=== PATIENT | female | born 1970 | race Caucasian/White ===

== ENCOUNTER 2020-12-08 12:25 | Emergency (ER) | payer BC ==
[~2020-12-08] VITALS: Ht 170 cm; Wt 104.0 kg
[~2020-12-08 12:25] MED LIST: CTLP20T PO; CYCL10TA9 PO; FLT05NA16 NSEACH; HYDR1TAB PO; LRT10T PO; METH4TAB PO; METO50TA7 PO; OXYC-309 PO; TRAZ150T42 PO
[2020-12-08] MEDS ORDERED: LACTATED RINGERS 1,000 ML IV ONE (12:42)
--- NOTE | 2020-12-08 12:44 | ED General ---
General Stated Complaint: COVID+;SOA Source of Information: Patient Exam Limitations: No Limitations (AMINAH ARAGON APRN) History of Present Illness Date Seen by Provider: Dec 08, 2020 Time Seen by Provider: 12:44 Initial Comments Tested positive for Covid on 11/28/2020. Supposed to be off of quarantine today but it was extended due to her ongoing symptoms. Fevers up to 103 at night, she is mostly bothered by a persistent cough. Unvaccinated. Did not receive Regeneron. She is currently on prednisone and amoxicillin. Primary care is out of [facility]. Timing/Duration: 1-2 Days Severity: Moderate Associated Systoms: Cough (AMINAH ARAGON APRN) Allergies and Home Medications Allergies Coded Allergies: latex (Verified Allergy, Unknown, 12/08/20) Home Medications Citalopram Hydrobromide 20 Mg Tablet, 1 EACH PO DAILY, (Reported) Cyclobenzaprine Hcl 10 Mg Tablet, 1 EACH PO Q8HR PRN, (Reported) Fluticasone Propionate 16 Gm [place], 2 SPRAYS NSEACH DAILY, (Reported) Hydrocodone Bit/Acetaminophen 1 Each Tablet, 1-2 EACH PO Q4HR PRN Prescribed by: ALMAZ SOSA on 09/24/11 1833 Hydrocodone/Acetaminophen 1 Each Tablet, 1-2 TAB PO Q4H PRN for COUGH Prescribed by: AMINAH ARAGON on 12/08/20 1516 Loratadine 10 Mg Tab, 10 MG PO DAILY, (Reported) Methylprednisolone 4 Mg/Dose-Pack Tab.ds.pk, 1 PACKET PO UD Prescribed by: ALMAZ SOSA on 09/24/11 1832 Metoprolol Succinate 50 Mg Tab.sr.24h, 1 EACH PO DAILY, (Reported) Trazodone Hcl 150 Mg Tablet, 150 MG PO HS PRN, (Reported) Patient Home Medication List Home Medication List Reviewed: Yes (AMINAH ARAGON APRN) Review of Systems Review of Systems Constitutional: see HPI EENTM: see HPI Respiratory: see HPI, cough, dyspnea on exertion Cardiovascular: no symptoms reported Genitourinary: no symptoms reported Musculoskeletal: no symptoms reported Skin: no symptoms reported Psychiatric/Neurological: No Symptoms Reported Hematologic/Lymphatic: No Symptoms Reported (AMINAH ARAGON APRN) Physical Exam Vital Signs Vital Signs - First Documented 12/08/20 12:25 Temp 36.6 Pulse 108 Resp 30 B/P (MAP) 142/91 (108) Pulse Ox 94 O2 Delivery Room Air (LOUANN SIGALA MD) Vital Signs Capillary Refill : (AMINAH ARAGON APRN) Height, Weight, BMI Height: '" Weight: lbs. oz. kg; BMI Method:Stated General Appearance: No Apparent Distress, WD/WN, Obese (Oxygen saturation is 93 to 97% on room air. Heart rate 105) Eyes: Bilateral Eye Normal Inspection, Bilateral Eye PERRL, Bilateral Eye EOMI Neck: Full Range of Motion, Normal Inspection Respiratory: Lungs Clear, Normal Breath Sounds, No Accessory Muscle Use, No Respiratory Distress Cardiovascular: Regular Rate, Rhythm, Normal Peripheral Pulses Gastrointestinal: Normal Bowel Sounds, Non Tender, Soft Extremity: Normal Capillary Refill, Normal Inspection Neurologic/Psychiatric: Alert, Oriented x3 Skin: Normal Color, Warm/Dry (AMINAH ARAGON APRN) Progress/Results/Core Measures Suspected Sepsis SIRS Temperature: Pulse: Respiratory Rate: Laboratory Tests 12/08/20 12:30: White Blood Count 8.3 Blood Pressure / Mean: Laboratory Tests 12/08/20 12:30: Creatinine 0.85, Platelet Count 276, Total Bilirubin 0.3 (AMINAH ARAGON APRN) Results/Orders Lab Results Laboratory Tests Test 12/08/20 12:30 Range/Units White Blood Count 8.3 4.3-11.0 10^3/uL Red Blood Count 5.10 3.80-5.11 10^6/uL Hemoglobin 15.1 11.5-16.0 g/dL Hematocrit 46 35-52 % Mean Corpuscular Volume 90 80-99 fL Mean Corpuscular Hemoglobin 30 25-34 pg Mean Corpuscular Hemoglobin Concent 33 32-36 g/dL Red Cell Distribution Width 13.9 10.0-14.5 % Platelet Count 276 130-400 10^3/uL Mean Platelet Volume 10.1 9.0-12.2 fL Immature Granulocyte % (Auto) 1 % Neutrophils (%) (Auto) 74 42-75 % Lymphocytes (%) (Auto) 20 12-44 % Monocytes (%) (Auto) 6 0-12 % Eosinophils (%) (Auto) 0 0-10 % Basophils (%) (Auto) 0 0-10 % Neutrophils # (Auto) 6.1 1.8-7.8 10^3/uL Lymphocytes # (Auto) 1.7 1.0-4.0 10^3/uL Monocytes # (Auto) 0.5 0.0-1.0 10^3/uL Eosinophils # (Auto) 0.0 0.0-0.3 10^3/uL Basophils # (Auto) 0.0 0.0-0.1 10^3/uL Immature Granulocyte # (Auto) 0.1 0.0-0.1 10^3/uL D-Dimer 0.51 H 0.00-0.49 UG/ML Sodium Level 139 135-145 MMOL/L Potassium Level 3.3 L 3.6-5.0 MMOL/L Chloride Level 102 98-107 MMOL/L Carbon Dioxide Level 24 21-32 MMOL/L Anion Gap 13 5-14 MMOL/L Blood Urea Nitrogen 14 7-18 MG/DL Creatinine 0.85 0.60-1.30 MG/DL Estimat Glomerular Filtration Rate 71 BUN/Creatinine Ratio 16 Glucose Level 158 H 70-105 MG/DL Calcium Level 8.6 8.5-10.1 MG/DL Corrected Calcium 9.2 8.5-10.1 MG/DL Total Bilirubin 0.3 0.1-1.0 MG/DL Aspartate Amino Transf (AST/SGOT) 23 5-34 U/L Alanine Aminotransferase (ALT/SGPT) 32 0-55 U/L Alkaline Phosphatase 56 40-136 U/L C-Reactive Protein High Sensitivity 4.01 H 0.00-0.50 MG/DL Total Protein 6.3 L 6.4-8.2 GM/DL Albumin 3.3 3.2-4.5 GM/DL Procalcitonin 0.06 <0.10 NG/ML (LOUANN SIGALA MD) Medications Given in ED Current Medications Medications Dose Ordered Sig/Margo Route Start Time Stop Time Status Last Admin Dose Admin Acetaminophen/ Hydrocodone Bitart 1 ea ONCE ONCE PO 12/08/20 12:45 12/08/20 12:46 DC 12/08/20 12:35 1 EA Lactated Ringer's 1,000 ml @ ud STK-MED ONCE IV 12/08/20 12:42 12/08/20 12:44 DC 12/08/20 12:35 10,000 MLS/HR (LOUANN SIGALA MD) Vital Signs/I&O 12/08/20 12/08/20 12/08/20 12:25 12:25 15:53 Temp 36.6 36.6 Pulse 108 88 Resp 30 16 B/P (MAP) 142/91 (108) 136/82 (108) Pulse Ox 94 95 O2 Delivery Room Air Room Air (LOUANN SIGALA MD) Vital Signs/I&O Capillary Refill : (AMINAH ARAGON APRN) Departure Communication (Admissions) NAME: KRYSTAL BERMEO [facility] REC#: [id number] PT STATUS: REG ER : 1970 PHYSICIAN: AMINAH ARAGON APRN ADMIT DATE: 12/08/20/ER Draft Date of Exam:12/08/20 CHEST 1 VIEW, AP/PA ONLY INDICATION: Covid-19 positive. TIME OF EXAM: 1:19 PM No prior studies are available for comparison. FINDINGS: Heart is enlarged. There are some peripheral based infiltrates in the mid and lower lung dobbs bilaterally suggestive of Covid-19 pneumonia. No effusion or pneumothorax is seen. IMPRESSION: Findings suggestive of bilateral pulmonary infiltrates consistent with pneumonia. Pattern would be suggestive of Covid-19 pneumonia. Dictated on workstation # [id number] Dict: 12/08/20 1321 Trans: 12/08/20 1327 [id number] Interpreted by: GAUDENCIO KRISHNAMURTHY MD Electronically signed by: (AMINAH ARAGON APRN) Impression Primary Impression: COVID-19 Disposition: 01 HOME, SELF-CARE Condition: Stable Departure-Patient Inst. Decision time for Depature: 13:35 (AMINAH ARAGON APRN) Referrals: NO,LOCAL PHYSICIAN (PCP/Family) Primary Care Physician Patient Instructions: Recovery After COVID-19 Add. Discharge Instructions: 1. Cough medication as directed 2. Return to ER for any concerns 3. Follow-up with your doctor. Scripts Hydrocodone/Acetaminophen (Hydrocodone-Acetamin 5-325 mg) 1 Each Tablet 1-2 TAB PO Q4H PRN for COUGH, #14 TAB Prov: AMINAH ARAGON APRN 12/08/20 ATTENDING PHYSICIAN NOTE: I was physically present as attending physician in the emergency department during the care of this patient, but I was not directly involved in the decision making or delivery of care for this patient. (LOUANN SIGALA MD) AMINAH ARAGON APRN Dec 08, 2020 12:44 LOUANN SIGALA MD Dec 08, 2020 20:30
[2020-12-08] MEDS ORDERED: HYDROcodone/APAP 5 MG/325 MG (LORTAB) TAB PO ONE (12:45)
[2020-12-08 12:58] LABS: BASOPHILS % (AUTO) 0 % (0-10); EOSINOPHILS % (AUTO) 0 % (0-10); HEMATOCRIT 46 % (35-52); HEMOGLOBIN 15.1 g/dL (11.5-16.0); LYMPHOCYTES # (AUTO) 1.7 10^3/uL (1.0-4.0); LYMPHOCYTES % (AUTO) 20 % (12-44); MEAN CORPUSCULAR HEMOGLOBIN 30 pg (25-34); MEAN CORPUSCULAR HGB CONC 33 g/dL (32-36); MEAN CORPUSCULAR VOLUME 90 fL (80-99); MEAN PLATELET VOLUME 10.1 fL (9.0-12.2); MONOCYTES # (AUTO) 0.5 10^3/uL (0.0-1.0); MONOCYTES % (AUTO) 6 % (0-12); NEUTROPHILS # (AUTO) 6.1 10^3/uL (1.8-7.8); NEUTROPHILS % (AUTO) 74 % (42-75); PLATELET COUNT 276 10^3/uL (130-400); WHITE BLOOD COUNT 8.3 10^3/uL (4.3-11.0)
--- NOTE | 2020-12-08 13:27 | Diagnostic Imaging Report ---
INDICATION: Covid-19 positive. TIME OF EXAM: 1:19 PM No prior studies are available for comparison. FINDINGS: Heart is enlarged. There are some peripheral based infiltrates in the mid and lower lung dobbs bilaterally suggestive of Covid-19 pneumonia. No effusion or pneumothorax is seen. IMPRESSION: Findings suggestive of bilateral pulmonary infiltrates consistent with pneumonia. Pattern would be suggestive of Covid-19 pneumonia. Dictated by: Dictated on workstation # [id number]
[2020-12-08 13:39] LABS: ALBUMIN 3.3 GM/DL (3.2-4.5); POTASSIUM 3.3 MMOL/L (3.6-5.0)
[2020-12-08 13:40] LABS: CALCIUM 8.6 MG/DL (8.5-10.1)
[2020-12-08 13:42] LABS: TOTAL PROTEIN 6.3 GM/DL (6.4-8.2)
[2020-12-08 13:43] LABS: BILIRUBIN,TOTAL 0.3 MG/DL (0.1-1.0)
[2020-12-08 13:45] LABS: CREATININE SERUM 0.85 MG/DL (0.60-1.30)
[2020-12-08] MEDS ORDERED: ACHD5005 PO (15:16)
[2020-12-08 15:53] VITALS: BP 136/82
--- OUTSIDE RECORDS SUMMARY | 2020-12-09 03:32 | XMS REPORT | Clinical Summary ---
Author Author Admin, Ara GREER Organization [facility] Address Unknown Phone Unavailable Allergies, Adverse Reactions, Alerts Allergy Name Reaction Description Start Date Severity Status Pr ovider Allergies Unknown Conditions or Problems Problem Name Problem Code Onset Date Status Entry Date Provider Comment Standard Description Annotate Sneezing 784.99 Active Aby Bose MA Ot her symptoms involving head and neck Headache, unspecified Active Patrizia Ashby A Fever 780.60 Active Aby Bose MA Fev er, unspecified Medication List Medication Instructions Start Date Stop Date Generic Name NDC Status Provider Patient Instruction Drug Treatment Unknown - unknown
--- OUTSIDE RECORDS SUMMARY | 2020-12-09 03:32 | XMS REPORT | Clinical Summary ---
Author Author Admin, Ara GREER Organization [facility] Address Unknown Phone Unavailable Allergies, [...]
--- OUTSIDE RECORDS SUMMARY | 2020-12-09 03:32 | XMS REPORT | Clinical Summary ---
Author Author Admin, Ara GREER Organization [facility] Address Unknown Phone Unavailable Allergies, [...]
--- OUTSIDE RECORDS SUMMARY | 2020-12-09 03:32 | XMS REPORT | Clinical Summary ---
Author Author Admin, Ara GREER Organization [facility] Address Unknown Phone Unavailable Allergies, Adverse Reactions, [...]
--- OUTSIDE RECORDS SUMMARY | 2020-12-09 03:32 | XMS REPORT | Clinical Summary ---
Author Author Admin, Ara GREER Organization [facility] Address Unknown Phone Unavailable Allergies, Adverse Reactions, [...]
--- OUTSIDE RECORDS SUMMARY | 2020-12-09 03:32 | XMS REPORT ---
Author Author Ara [facility] Address [address] [place], [place] [id number] Care Team Providers Care Agricultural Sales Representative Name Role Phone Alfonzo Blas PCP Allergies and Adverse Reactions Name Reaction Notes Latex Biaxin Plan of Treatment Planned Activity Comments Planned Date Planned Time Plan/Goal Magnetic resonance imaging of cervical spine without contrast 04/17/2019 12:00 AM Magnetic resonance imaging of lumbar spine without contrast 04/17/2019 12:00 AM THYROID PANEL. 08/09/2020 12:00 AM THYROID PANEL. 08/09/2020 12:00 AM THYROID PANEL. 08/09/2020 12:00 AM Mammogram, screening, digital with nohemi 08/09/2020 1 2:00 AM CBC for General Health Panel 10/07/2020 12:00 AM Medications Active Name Start Date Estimated Completion Date SIG Co mments Prilosec oral Aleve 220 mg oral tablet take 1 tablet (220 mg) by oral route every 12 hours as needed Advil oral cyclobenzaprine 10 mg oral tablet 04/16/2019 1/2 to 1 tab po q 12 hours prn ondansetron 4 mg oral tablet,disintegrating 09/10/2019 dissolve 1 tablet by oral route every 6 hours as needed Carafate 1 gram oral tablet 01/12/2020 take 1 tablet (1 gram) by oral route 4 times per day on an empty stomach 1 hour before meals and at bedtime Mucinex 600 mg oral tablet extended release 12hr 06/07/2020 take 1 tablet (600 mg) by oral route every 12 hours as needed Celexa 20 mg oral tablet 08/09/2020 take 1 tablet (20 mg) by oral route once daily in the morning clorazepate dipotassium 7.5 mg oral tablet 08/09/2020 1 tab po q 12 hours prn Tricor 145 mg oral tablet 08/09/2020 take 1 tablet (145 mg) by oral route once daily Alcohol Prep Pads topical pads, medicated 08/09/2020 apply to affected area by topical route 4 times a day losartan-hydrochlorothiazide 100-12.5 mg oral tablet 08/09/2020 take 1 tablet by oral route once daily pantoprazole 20 mg oral tablet,delayed release (DR/EC) 08/09/2020 1 tab po q 12 hours prn triamcinolone acetonide 0.5 % topical cream 09/30/2020 apply a thin layer to the affected area(s) by topical route 2 times per day metformin 500 mg tablet 11/20/2020 take 1 t ablet (500 mg) by oral route 2 times per day with morning and evening meals prednisone 20 mg oral tablet 12/02/2020 12/12/2020 silver e 2 tabs po qd x 3 days, then 1 tab po qd x 3 days, then 1/2 tab po qd x 4 days amoxicillin-pot clavulanate 875-125 mg oral tablet 12/02/2020 12/12/2020 take 1 tablet by oral route every 12 hours for 10 days Name Start Date Expiration Date SIG Comments Keflex 500 mg oral capsule 04/01/2019 04/08/2019 take 1 capsule (500 mg) by oral route every 6 hours for 7 days prednisone 20 mg oral tablet 04/01/2019 3 t abs po q am x 1 day, 2 tabs po q am x 3 days, 1 tab po q am x 2 days, 1/2 tab po q am x 2 days. take with food. hydrocodone-acetaminophen 5-325 mg oral tablet 04/16/2019 take 1 tablet by oral route every 6 hours as needed for pain prednisone 20 mg oral tablet 04/16/2019 sta rt on 04 17 19, 2 tabs po q am x 4 days, 1 tab po q am x 4 days, 1/2 tab po q am x 4 days. take with food. amoxicillin-pot clavulanate 875-125 mg oral tablet 07/30/2019 08/09/2019 take 1 tablet by oral route every 12 hours for 10 days prednisone 20 mg oral tablet 07/30/2019 08/06/2019 silver e 2 tabs po qd x 2 days, then 1 tab po qd x 5 days fluoxetine 20 mg oral capsule 12/24/2019 TA KE 1 CAPSULE BY MOUTH IN THE MORNING prednisone 20 mg oral tablet 06/07/2020 06/17/2020 silver e 2 tabs po qd x 3 days, then 1 tab po qd x 3 days, then 1/2 tab po qd x 4 days Discontinued Name Start Date Discontinued Date SIG Comments losartan oral 07/08/2019 take 1 by oral route once hydrochlorothiazide 12.5 mg oral tablet 0 take 1 tablet (12.5 mg) by oral route once daily biotin oral 07/08/2019 Prozac 20 mg oral capsule 12/24/2019 12/24/2019 1 capsule po q am hydrochlorothiazide 12.5 mg oral tablet 12/24/2019 0 TAKE 1 TABLET BY MOUTH ONCE DAILY WITH LOSARTAN losartan 100 mg oral tablet 12/24/2019 12/24/2019 TAKE 1 TABLET BY MOUTH ONCE DAILY WITH HCTZ atorvastatin 20 mg oral tablet 12/24/2019 08/09/2020 t olga 1 tablet (20 mg) by oral route once daily at bedtime Problem List Not available. Vital Signs Date Time BP-Sys(mm[Hg] BP-Emilee(mm[Hg]) HR(bpm) RR(rpm) Temp WT HT HC BMI BSA BMI Percentile O2 Sat(%) 09/30/2020 5:29:00 PM 81 {beats}/min 16 rpm 98.2 F 241 lbs 67 in 37.7455 kg/m2 2.2732 m2 96 % 08/09/2020 9:24:00 AM 138 mm[Hg] 80 mm[Hg] 84 {beats}/min 20 rpm 97.9 F 252.375 lbs 67 in 39.53 kg/m2 2.33 m2 97 % 12/24/2019 8:26:00 AM 126 mm[Hg] 74 mm[Hg] 92 {beats}/min 19 rpm 98.1 F 234 lbs 67 in 36.6492 kg/m2 2.24 m2 96 % 10/17/2019 4:32:00 PM 128 mm[Hg] 76 mm[Hg] 78 {beats}/min 21 rpm 98.6 F 96 % 09/10/2019 5:08:00 PM 128 mm[Hg] 78 mm[Hg] 93 {beats}/min 20 rpm 97.9 F 95 % 07/08/2019 4:37:00 PM 156 mm[Hg] 98 mm[Hg] 91 {beats}/min 16 rpm 98.6 F 253.5 lbs 67 in 39.7033 kg/m2 2.3314 m2 95 % 04/16/2019 4:28:00 PM 144 mm[Hg] 92 mm[Hg] 85 {beats}/min 16 rpm 97.9 F 249 lbs 67 in 39.00 kg/m2 2.31 m2 98 % 04/01/2019 8:28:00 AM 122 mm[Hg] 80 mm[Hg] 90 {beats}/min 98.2 F 24 9 lbs 67 in 38.9985 kg/m2 2.3107 m2 98 % Social History Name Description Comments Tobacco Never smoker History of Procedures Date Ordered Description Order Status 04/01/2019 8:41 AM FALL RISK ASSESSMENT DOCD Reviewed 04/01/2019 8:41 AM SCREEN DEPRESSION PERFORMED Reviewed 04/01/2019 12:00 AM THER/PROPH/DIAG INJ SC/IM Reviewed 04/01/2019 12:00 AM Benadryl 50mg Injection Reviewed 04/16/2019 12:00 AM RADEX SPINE CERVICAL 4 OR 5 VIEWS Return ed 04/16/2019 12:00 AM RADEX SPINE LUMBOSACRAL 2/3 VIEWS Return ed 09/10/2019 12:00 AM SARS-CoV-2 non-CDC lab test Reviewed 10/17/2019 12:00 AM Decadron 8mg Injection Reviewed 10/17/2019 12:00 AM Depo-Medrol 80mg Injection Reviewed 10/17/2019 12:00 AM THER/PROPH/DIAG INJ SC/IM Reviewed 11/25/2019 12:00 AM SARS-CoV-2 non-CDC lab test Returned 12/24/2019 12:00 AM ROUTINE VENIPUNCTURE Reviewed 12/24/2019 12:00 AM COMPLETE CBC W/AUTO DIFF WBC Returned 12/24/2019 12:00 AM COMPREHEN METABOLIC PANEL Returned 12/24/2019 12:00 AM ASSAY OF TOTAL THYROXINE Returned 12/24/2019 12:00 AM ASSAY THYROID STIM HORMONE Returned 12/24/2019 12:00 AM ASSAY OF THYROID (T3 OR T4) Returned 12/24/2019 12:00 AM LIPID PANEL Returned 12/24/2019 12:00 AM URNLS DIP STICK/TABLET RGNT AUTO W/O EDILIA ROSCOPY Returned 06/07/2020 1:11 PM INFLUENZA A/B AG EIA Reviewed 06/07/2020 12:00 AM COVID-19 Testing Reviewed 08/09/2020 12:00 AM ROUTINE VENIPUNCTURE Reviewed 08/09/2020 12:00 AM COMPLETE CBC W/AUTO DIFF WBC Returned 08/09/2020 12:00 AM COMPREHEN METABOLIC PANEL Returned 08/09/2020 12:00 AM LIPID PANEL Returned 08/09/2020 12:00 AM URNLS DIP STICK/TABLET RGNT AUTO W/O EDILIA ROSCOPY Returned 08/09/2020 12:00 AM GLYCOSYLATED HEMOGLOBIN TEST Returned 08/09/2020 12:00 AM VITAMIN B-12 Returned 08/09/2020 12:00 AM VITAMIN D 25 HYDROXY Returned 08/30/2020 12:00 AM Benadryl 25mg Injection Reviewed 08/30/2020 12:00 AM Toradol 60 Mg Injection Reviewed 08/30/2020 12:00 AM THER/PROPH/DIAG INJ SC/IM Reviewed 09/30/2020 12:00 AM THER/PROPH/DIAG INJ SC/IM Reviewed 09/30/2020 12:00 AM Depo-Medrol 80mg Injection Reviewed 09/30/2020 12:00 AM Decadron 8mg Injection Reviewed 10/07/2020 12:00 AM COMPREHEN METABOLIC PANEL Returned 10/07/2020 12:00 AM HETEROPHILE ANTIBODY SCREEN Returned 10/07/2020 12:00 AM COVID-19 Testing Returned 10/07/2020 12:00 AM Tick Panel Returned Results Summary Date and Description Results 04/01/2019 8:41 AM During the past month, have you been feeling depressed? Yes During the past month, have you lost interest in usual activity? No 09/10/2019 5:35 PM [id number] NOT DETECTED 06/07/2020 2:30 PM [id number] NOT DETECTED History Of Immunizations Not available. History of Past Illness Name Date of Onset Comments Hypertension Prediabetes Colitis ulcer Arm edema Apr 01 2019 8:41AM Right arm pain Apr 01 2019 8:41AM Cellulitis Apr 01 2019 8:41AM Toxic effect of venom of wasps, accidental (unintentio nal), initial encounter Apr 01 2019 8:41AM Back pain Apr 16 2019 4:41PM Radiculopathy Apr 16 2019 4:41PM Lower extremity weakness Apr 16 2019 4:41PM Upper extremity weakness Apr 16 2019 4:41PM Disc narrowing Apr 16 2019 4:41PM Anterolisthesis Apr 16 2019 4:41PM Dextroscoliosis Apr 16 2019 4:41PM Hypertension Jul 08 2019 4:43PM Hyperglycemia Jul 08 2019 4:43PM Depression Jul 08 2019 4:43PM Obesity Jul 08 2019 4:43PM BMI 39.0-39.9,adult Jul 08 2019 4:43PM Acute sinusitis Jul 30 2019 10:01AM Fever Jul 30 2019 10:01AM Headache Jul 30 2019 10:01AM Gastroenteritis Sep 10 2019 5:09PM Fever Sep 10 2019 5:09PM Poison mina dermatitis Oct 17 2019 4:34PM Fever Nov 25 2019 2:57PM Headache Nov 25 2019 2:57PM Fatigue Nov 25 2019 2:57PM Diarrhea Nov 25 2019 2:57PM BMI 36.0-36.9,adult Dec 24 2019 8:26AM Hypertension Dec 24 2019 8:26AM Depression Dec 24 2019 8:26AM GERD (gastroesophageal reflux disease) Dec 24 2019 8:26AM Encounter for screening mammogram for breast cancer Dec 23 8:26AM Varicose veins of right lower extremity Dec 24 2019 8:26AM Hyperlipidemia Dec 24 2019 8:26AM Abdominal pain Jan 12 2020 5:55PM Vomiting Jan 12 2020 5:55PM History of gastric ulcer Jan 12 2020 5:55PM Constipation Jan 12 2020 5:55PM Cough Jun 07 2020 1:09PM Fever Jun 07 2020 1:09PM Fatigue Jun 07 2020 1:09PM Pharyngitis Jun 07 2020 1:09PM Hypertension Aug 09 2020 9:26AM Hyperlipidemia Aug 09 2020 9:26AM GERD (gastroesophageal reflux disease) Aug 09 2020 9:26AM Routine adult health maintenance Aug 09 2020 9:26AM Encounter for mammogram to establish baseline mammogram Aug 09 2020 9:26AM BMI 39.0-39.9,adult Aug 09 2020 9:26AM Fatigue Aug 09 2020 9:26AM Depression Aug 09 2020 9:26AM Anxiety Aug 09 2020 9:26AM Diabetes mellitus type II, uncontrolled Aug 09 2020 9:26AM Migraine Aug 30 2020 5:17PM Nausea and vomiting Aug 30 2020 5:17PM Contact dermatitis Sep 30 2020 5:33PM Fever Oct 07 2020 11:54AM Headache Oct 07 2020 11:54AM Fatigue Oct 07 2020 11:54AM Diarrhea Oct 07 2020 11:54AM Body aches Oct 07 2020 11:54AM Cough Dec 02 2020 5:12PM Fever Dec 02 2020 5:12PM Headache Dec 02 2020 5:12PM COVID-19 Dec 02 2020 5:12PM Payers Insurance Name Company Name Plan Name Plan Number Policy Number [place] Group Number Start Date Pro[employer] Care Pro[employer] Care [id number] N/ A [employer] [id number] N/ A [place] [employer] ([facility] [place] Plan [id number] N/A History of Encounters Visit Date Visit Type Provider 12/02/2020 Office visit Alfonzo Blas WET INSPECTOR [employer] 10/07/2020 Office visit 10/07/2020 Office visit Emeli DARLING RN 09/30/2020 Office visit Woodrow Figueroa A PRN 08/30/2020 Office visit Alfonzo Blas WET INSPECTOR [employer] 08/09/2020 Office visit Woodrow Espinosal A PRN 06/07/2020 Office visit Alfonzo Blas WET INSPECTOR [employer] 01/12/2020 Office visit Woodrow Espinosal A PRN 12/24/2019 Office visit Woodrow Espinosal A PRN 11/25/2019 Office visit Woodrow Espinosal A PRN 10/17/2019 Office visit Alfonzo Blas WET INSPECTOR [employer] 09/10/2019 Office visit Alfonzo Blas WET INSPECTOR [employer] 07/30/2019 Office visit Alfonzo Blas WET INSPECTOR [employer] 07/08/2019 Office visit Woodrow Espinosal A PRN 04/16/2019 Office visit Woodrow Duvallzell A PRN 04/01/2019 Office visit Woodrow Duvallzell A PRN
== END 2020-12-08 15:53 | disposition home or self-care (01) ==
LOC: EDUNIT# 12:27 → ER 12:28
DX: U07.1 COVID-19 (principal); E66.9 Obesity, unspecified; Z73.0 Burn-out
CPT/HCPCS: 36415; 71045; 80053; 84145; 85025; 85379; 86141

== ENCOUNTER 2020-12-23 21:11 | Emergency (ER) | payer BC ==
[~2020-12-23] VITALS: Ht 170.2 cm; Wt 106.5 kg
[~2020-12-23 21:11] MED LIST changes: +ACHD5005 PO
--- OUTSIDE RECORDS SUMMARY | 2020-12-23 21:16 | XMS REPORT | Clinical Summary ---
Author Author Admin, Ara GREER Organization [facility] Address Unknown Phone Unavailable Allergies, Adverse [...]
--- OUTSIDE RECORDS SUMMARY | 2020-12-23 21:16 | XMS REPORT ---
Author Author Ara Figueroa [facility] Address [address] [place], [place] [address] Care Team Providers Care Shade Bander Name Role Phone Woodrow Figueroa PCP Unavailable Allergies and Adverse Reactions Name Reaction Notes [...] for General Health Panel 10/07/2020 12:00 AM ZC CHEST 2 VIEW 12/23/2020 12:00 AM Medications Active Name Start Date [...] per day with morning and evening meals Name Start Date Expiration Date SIG Comments [...] 1/2 tab po qd x 4 days prednisone 20 mg oral tablet 12/02/2020 12/12/2020 silver e 2 tabs po qd x 3 days, then 1 tab po qd x 3 days, then 1/2 tab po qd x 4 days amoxicillin-pot clavulanate 875-125 mg oral tablet 12/02/2020 12/12/2020 take 1 tablet by oral route every 12 hours for 10 days Discontinued Name Start Date Discontinued Date [...] HC BMI BSA BMI Percentile O2 Sat(%) 12/23/2020 7:20:00 PM 104 mm[Hg] 62 mm[Hg] 116 {beats}/min 22 rpm 97.9 F 235 lbs 68 in 35.7313 kg/m2 2.2615 m2 94 % 09/30/2020 5:29:00 PM 81 {beats}/min 16 rpm 98.2 F 241 lbs 67 in 37.75 kg/m2 2.27 m2 96 % 08/09/2020 9:24:00 AM 138 mm[Hg] 80 mm[Hg] 84 {beats}/min 20 rpm 97.9 F 252.375 lbs 67 in 39.5271 kg/m2 2.3263 m2 97 % 12/24/2019 8:26:00 AM 126 mm[Hg] 74 mm[Hg] 92 {beats}/min 19 rpm 98.1 F 234 lbs 67 in 36.65 kg/m2 2.24 m2 96 % 10/17/2019 4:32:00 [...] in usual activity? No 09/10/2019 5:35 PM [id number] NOT DETECTED 06/07/2020 2:30 PM [id number] NOT DETECTED History Of Immunizations Not available. [...] 2020 5:12PM COVID-19 Dec 02 2020 5:12PM Cough Dec 21 2020 6:02PM Headache Dec 21 2020 6:02PM COVID-19 Dec 21 2020 6:02PM Cough Dec 23 2020 6:59PM Fever Dec 23 2020 6:59PM COVID-19 Dec 23 2020 6:59PM Tachycardia Dec 23 2020 6:59PM Fatigue Dec 23 2020 6:59PM Dyspnea Dec 23 2020 6:59PM Tachypnea Dec 23 2020 6:59PM Payers Insurance Name Company Name Plan Name Plan Number Policy Number Saul [place] Group Number Start Date BCBS [facility] [id number] N/ A [employer] Care [employer] [id number] N/ A [place] [facility] [id number] N/A [employer] [id number] N/ A History of Encounters Visit Date Visit Type Provider 12/23/2020 Office visit Woodrow Deng PRN 12/21/2020 Office visit Woodrow Deng PRN 12/02/2020 Office visit Alfonzo Blas NP 10/07/2020 Office visit 10/07/2020 Office visit Emeli DARLING RN 09/30/2020 Office visit Woodrow Deng PRN 08/30/2020 Office visit Alfonzo Blas NP 08/09/2020 Office visit Woodrow Deng PRN 06/07/2020 Office visit Alfonzo Blas NP 01/12/2020 Office visit Woodrow Deng PRN 12/24/2019 Office visit Woodrow Deng PRN 11/25/2019 Office visit Woodrow Deng PRN 10/17/2019 Office visit Alfonzo Blas CORRECTIONAL SUPERVISING COOK 09/10/2019 Office visit Alfonzo Blas CORRECTIONAL SUPERVISING COOK 07/30/2019 Office visit Alfonzo Blas CORRECTIONAL SUPERVISING COOK 07/08/2019 Office visit Woodrow Deng PRN 04/16/2019 Office visit Woodrow Deng PRN 04/01/2019 Office visit Woodrow Deng PRN
--- NOTE | 2020-12-23 21:38 | ED General ---
General Stated Complaint: COUGH, SOB, SORE THROAT Source of Information: Patient Exam Limitations: No Limitations History of Present Illness Date Seen by Provider: Dec 23, 2020 Time Seen by Provider: 21:37 Initial Comments To ER with cough shortness of breath and sore throat as well as pressure in her ears. The symptoms recurred about 4 days ago. She was diagnosed positive with Covid on 11/28. Timing/Duration: 2-3 Days Severity: Moderate Associated Systoms: Headaches, Weakness Allergies and Home Medications Allergies Coded Allergies: latex (Verified Allergy, Unknown, 12/08/20) Home Medications Citalopram Hydrobromide 20 Mg Tablet, 1 EACH PO DAILY, (Reported) Cyclobenzaprine Hcl 10 Mg Tablet, 1 EACH PO Q8HR PRN, (Reported) Fluticasone Propionate 16 Gm [place], 2 SPRAYS NSEACH DAILY, (Reported) Hydrocodone Bit/Acetaminophen 1 Each Tablet, 1-2 EACH PO Q4HR PRN Prescribed by: ALMAZ SOSA on 09/24/111832 Hydrocodone/Acetaminophen 1 Each Tablet, 1-2 TAB PO Q4H PRN for COUGH Prescribed by: AMINAH ARAGON on 12/08/20 1516 Loratadine 10 Mg Tab, 10 MG PO DAILY, (Reported) Methylprednisolone 4 Mg/Dose-Pack Tab.ds.pk, 1 PACKET PO UD Prescribed by: ALMAZ SOSA on 09/24/11 183 Metoprolol Succinate 50 Mg Tab.sr.24h, 1 EACH PO DAILY, (Reported) Trazodone Hcl 150 Mg Tablet, 150 MG PO HS PRN, (Reported) Patient Home Medication List Home Medication List Reviewed: Yes Review of Systems Review of Systems Constitutional: see HPI EENTM: see HPI Respiratory: see HPI, cough Cardiovascular: no symptoms reported Genitourinary: no symptoms reported Musculoskeletal: no symptoms reported Skin: no symptoms reported Psychiatric/Neurological: No Symptoms Reported Hematologic/Lymphatic: No Symptoms Reported Physical Exam Vital Signs Vital Signs - First Documented Capillary Refill : Height, Weight, BMI Height: '" Weight: lbs. oz. kg; 35.00 BMI Method:Stated General Appearance: No Apparent Distress, WD/WN, Other (She is a little dyspneic, after ambulating to room nine she has an oxygen saturation of 97 to 98% on room air heart rate 105 blood pressure 150/100.) Eyes: Bilateral Eye Normal Inspection, Bilateral Eye PERRL, Bilateral Eye EOMI HEENT: PERRL/EOMI, TMs Normal Neck: Full Range of Motion, Normal Inspection Respiratory: No Accessory Muscle Use, No Respiratory Distress Cardiovascular: Normal Peripheral Pulses, Tachycardia Gastrointestinal: Normal Bowel Sounds, Non Tender, Soft Extremity: Normal Capillary Refill, Normal Inspection Neurologic/Psychiatric: Alert, Oriented x3 Progress/Results/Core Measures Suspected Sepsis SIRS Temperature: Pulse: Respiratory Rate: Laboratory Tests 12/23/20 21:30: White Blood Count 11.1H Blood Pressure / Mean: Laboratory Tests 12/23/20 21:30: Creatinine 0.88, Platelet Count 288, Total Bilirubin 0.6 Results/Orders Lab Results Laboratory Tests Test 12/23/20 21:30 Range/Units White Blood Count 11.1 H 4.3-11.0 10^3/uL Red Blood Count 4.73 3.80-5.11 10^6/uL Hemoglobin 14.1 11.5-16.0 g/dL Hematocrit 42 35-52 % Mean Corpuscular Volume 90 80-99 fL Mean Corpuscular Hemoglobin 30 25-34 pg Mean Corpuscular Hemoglobin Concent 33 32-36 g/dL Red Cell Distribution Width 13.9 10.0-14.5 % Platelet Count 288 130-400 10^3/uL Mean Platelet Volume 10.4 9.0-12.2 fL Immature Granulocyte % (Auto) 0 % Neutrophils (%) (Auto) 61 42-75 % Lymphocytes (%) (Auto) 31 12-44 % Monocytes (%) (Auto) 6 0-12 % Eosinophils (%) (Auto) 2 0-10 % Basophils (%) (Auto) 1 0-10 % Neutrophils # (Auto) 6.8 1.8-7.8 10^3/uL Lymphocytes # (Auto) 3.4 1.0-4.0 10^3/uL Monocytes # (Auto) 0.6 0.0-1.0 10^3/uL Eosinophils # (Auto) 0.3 0.0-0.3 10^3/uL Basophils # (Auto) 0.1 0.0-0.1 10^3/uL Immature Granulocyte # (Auto) 0.0 0.0-0.1 10^3/uL D-Dimer 0.49 0.00-0.49 UG/ML Sodium Level 139 135-145 MMOL/L Potassium Level 3.8 3.6-5.0 MMOL/L Chloride Level 103 98-107 MMOL/L Carbon Dioxide Level 24 21-32 MMOL/L Anion Gap 12 5-14 MMOL/L Blood Urea Nitrogen 8 7-18 MG/DL Creatinine 0.88 0.60-1.30 MG/DL Estimat Glomerular Filtration Rate 68 BUN/Creatinine Ratio 9 Glucose Level 173 H 70-105 MG/DL Calcium Level 9.5 8.5-10.1 MG/DL Corrected Calcium 9.6 8.5-10.1 MG/DL Total Bilirubin 0.6 0.1-1.0 MG/DL Aspartate Amino Transf (AST/SGOT) 34 5-34 U/L Alanine Aminotransferase (ALT/SGPT) 61 H 0-55 U/L Alkaline Phosphatase 75 40-136 U/L C-Reactive Protein High Sensitivity 1.62 H 0.00-0.50 MG/DL Total Protein 7.1 6.4-8.2 GM/DL Albumin 3.9 3.2-4.5 GM/DL Procalcitonin 0.07 <0.10 NG/ML Influenza Type A (RT-PCR) Not Detected Not Detecte Influenza Type B (RT-PCR) Not Detected Not Detecte SARS-CoV-2 RNA (RT-PCR) Not Detected Not Detecte My Orders Orders - AMINAH ARAGON APRN Chest 1 View, Ap/Pa Only (12/23/20 21:30) Cbc With Automated Diff (12/23/20 21:36) Hs C Reactive Protein (12/23/20 21:36) Procalcitonin (Pct) (12/23/20 21:36) Comprehensive Metabolic Panel (12/23/20 21:36) Fibrin Degradation Products (12/23/20 21:36) Ed Iv/Invasive Line Start (12/23/20 21:36) Ketorolac Injection (Toradol Injection) (12/23/20 21:45) Lactated Ringers (Lr 1000 Ml Iv Solution (12/23/20 21:45) Hydrocodone/Apap 5/325 Tablet (Lortab 5 (12/23/20 22:15) Medications Given in ED Current Medications Medications Dose Ordered Sig/Margo Route Start Time Stop Time Status Last Admin Dose Admin Ketorolac Tromethamine 30 mg ONCE ONCE IVP 12/23/20 21:45 12/23/20 21:46 DC 12/23/20 21:42 30 MG Vital Signs/I&O 12/23/20 12/23/20 21:26 21:26 Temp 37.2 Pulse 105 Resp 20 B/P (MAP) 149/100 (116) Pulse Ox 97 O2 Delivery Room Air Room Air Capillary Refill : Departure Impression Primary Impression: Post-COVID syndrome Disposition: HOME, SELF-CARE Condition: Stable Departure-Patient Inst. Decision time for Depature: 22:12 Referrals: NO,LOCAL PHYSICIAN (PCP/Family) Primary Care Physician Patient Instructions: COVID-19 ED AMINAH ARAGON APRN Dec 23, 2020 21:38
[2020-12-23] MEDS: LACTATED RINGERS 1,000 ML IV SCH ×2 (21:42→21:43)
[2020-12-23 21:43] LABS: BASOPHILS # (AUTO) 0.1 10^3/uL (0.0-0.1); BASOPHILS % (AUTO) 1 % (0-10); EOSINOPHILS # (AUTO) 0.3 10^3/uL (0.0-0.3); EOSINOPHILS % (AUTO) 2 % (0-10); HEMATOCRIT 42 % (35-52); HEMOGLOBIN 14.1 g/dL (11.5-16.0); LYMPHOCYTES # (AUTO) 3.4 10^3/uL (1.0-4.0); LYMPHOCYTES % (AUTO) 31 % (12-44); MEAN CORPUSCULAR HEMOGLOBIN 30 pg (25-34); MEAN CORPUSCULAR HGB CONC 33 g/dL (32-36); MEAN CORPUSCULAR VOLUME 90 fL (80-99); MEAN PLATELET VOLUME 10.4 fL (9.0-12.2); MONOCYTES # (AUTO) 0.6 10^3/uL (0.0-1.0); MONOCYTES % (AUTO) 6 % (0-12); NEUTROPHILS # (AUTO) 6.8 10^3/uL (1.8-7.8); NEUTROPHILS % (AUTO) 61 % (42-75); PLATELET COUNT 288 10^3/uL (130-400); WHITE BLOOD COUNT 11.1 10^3/uL (4.3-11.0)
[2020-12-23] MEDS ORDERED: KETOROLAC 30 MG/ML VIAL IVP ONE (21:45)
--- NOTE | 2020-12-23 22:00 | Diagnostic Imaging Report ---
HISTORY: Chest pain, Covid three weeks ago. COMPARISON: 12/08/2020. TECHNIQUE: Frontal view of the chest. FINDINGS: Lung volumes are mildly large. The cardiac silhouette is mildly prominent but appears stable since the prior study. There are minimal basilar airspace opacities, significantly improved since the prior exam. There is no pleural effusion or pneumothorax. IMPRESSION: Minimal bilateral airspace opacities, significantly improved since the prior exam. This may represent atelectasis or continued resolution of infection. Dictated by: Dictated on workstation # [id number]
[2020-12-23 22:05] LABS: ALBUMIN 3.9 GM/DL (3.2-4.5); BILIRUBIN,TOTAL 0.6 MG/DL (0.1-1.0); CALCIUM 9.5 MG/DL (8.5-10.1); CREATININE SERUM 0.88 MG/DL (0.60-1.30); POTASSIUM 3.8 MMOL/L (3.6-5.0); TOTAL PROTEIN 7.1 GM/DL (6.4-8.2)
[2020-12-23] MEDS ORDERED: HYDROcodone/APAP 5 MG/325 MG (LORTAB) TAB PO ONE (22:15)
[2020-12-23 22:52] VITALS: BP 125/81
== END 2020-12-23 22:55 | disposition home or self-care (01) ==
LOC: EDUNIT# 21:11 → ER 21:13
DX: Z20.822 Contact with and (suspected) exposure to COVID-19 (principal)
CPT/HCPCS: 36415; 71045; 80053; 84145; 85025; 85379; 86141; 87636

== ENCOUNTER → 2021-10-25 | Outpatient (CLI) | payer BC ==
--- NOTE | 2021-10-26 11:15 | Diagnostic Imaging Report ---
INDICATION: Routine screening. COMPARISON: 01/01/2018 and 02/04/2016. TECHNIQUE: 2D and 3D bilateral screening mammography was performed with CAD. FINDINGS: Both breasts are heterogeneously dense, limiting the sensitivity of mammography. There is a small circumscribed nodule in the lower outer aspect of the right breast approximately 6 to 7 cm from the nipple. This was not present on the prior exam. No spiculated masses or malignant-appearing microcalcifications are seen. The axillae are unremarkable. IMPRESSION: There is a tiny circumscribed nodule in the lower outer right breast 6-7 cm from the nipple. Further evaluation with ultrasound is recommended. ACR BI-RADS Category 0: Incomplete. (Needs additional imaging evaluation). Result letter will be mailed to the patient. Note: At least 10% of breast cancer is not imaged by mammography. Dictated by: Dictated on workstation # [id number]
== END ==
LOC: RAD 15:45
PROVIDERS: ATTEND Registered Nurse
DX: Z12.31 Encounter for screening mammogram for malignant neoplasm of breast (principal); Z12.11 Encounter for screening for malignant neoplasm of colon; N63.11 Unspecified lump in the right breast, upper outer quadrant
CPT/HCPCS: 77063; 77067

== ENCOUNTER → 2022-01-06 | Outpatient (CLI) | payer BC ==
--- NOTE | 2022-01-06 11:40 | Diagnostic Imaging Report ---
Limited right breast ultrasound INDICATION: Abnormal mammogram The screening mammogram performed on 10/25/2021 noted a well-circumscribed nodule in the lower outer aspect of the right breast. This finding had developed since the prior exam of 01/01/2018. On this study, there is a lobulated avascular predominantly hypoechoic lesion in the 8 o'clock position approximately 7 cm from the nipple. This would correspond to the finding of the mammogram. I suspect that this is a cyst although it has somewhat of an unusual configuration. There is no solid mass to suggest malignancy. IMPRESSION: The density seen on the mammogram is felt to represent a benign-appearing cyst. It may prove worthwhile to have a short-term (3-month) follow-up mammogram and ultrasound for further study. ACR BI-RADS Category 3: Probably benign findings. Result letter will be mailed to the patient. Note: At least 10% of breast cancer is not imaged by mammography. Dictated by: Dictated on workstation # [id number]
== END ==
LOC: RAD 10:06
PROVIDERS: ATTEND Registered Nurse
DX: R92.8 Other abnormal and inconclusive findings on diagnostic imaging of breast (principal)

== ENCOUNTER 2022-07-03 16:09 | Emergency (ER) | payer BC ==
[~2022-07-03] VITALS: Ht 170.2 cm; Wt 107.0 kg
[2022-07-03 16:46] LABS: BILIRUBIN,URINE NEGATIVE (NEGATIVE); CLARITY,URINE CLEAR; COLOR,URINE YELLOW; GLUCOSE, URINE (UA) TRACE (NEGATIVE); KETONES,URINE NEGATIVE (NEGATIVE); LEUKOCYTE ESTERASE ,URINE 3+ (NEGATIVE); NITRITE,URINE POSITIVE (NEGATIVE); PROTEIN,URINE 2+ (NEGATIVE)
[2022-07-03] MEDS ORDERED: NS IV 1000 ML 1,000 ML IV STA (17:02)
[2022-07-03] MEDS ORDERED: KETOROLAC 30 MG/ML VIAL IVP STA (17:02)
--- NOTE | 2022-07-03 17:07 | ED GU-Female ---
General Chief Complaint: - Reproductive Stated Complaint: BACK PAIN Nursing Triage Note: PT AMB TO TRIAGE WITH COMPLAINT OF LEFT FLANK PAIN AND PAIN ON URINATION. STATES HAS BEEN RUNNING A FEVER AT HOME. Source: patient Exam Limitations: no limitations History of Present Illness Date Seen by Provider: Jul 03, 2022 Time Seen by Provider: 16:51 Initial Comments 51-year-old female presents with complaints of left lower back pain starting Sunday evening. She states this pain is constant, but reduces in intensity at times. She is also complaining of dysuria, urgency, frequency, abnormal looking urine with "things floating in it." She reports she has had fevers at home, temperature was 101 today. She did not take any fever reducing medication. She is also complaining of nausea. She reports that she was having right lower quadrant abdominal pain, states this pain is gone now. Reports history of kidney stones. Other past medical history includes type 2 diabetes, hypertension and high cholesterol. Allergies and Home Medications Allergies Coded Allergies: clarithromycin (Verified Allergy, Unknown, 07/03/22) latex (Verified Allergy, Unknown, 12/08/20) Patient Home Medication List Home Medication List Reviewed: Yes Cefpodoxime Proxetil (Cefpodoxime Proxetil) 200 Mg Tablet, 200 MG PO BID Prescribed by: Sia Drake on 07/03/22 185 Citalopram Hydrobromide (Celexa) 20 Mg Tablet, 1 EACH PO DAILY, (Reported) Entered as Reported by: FLORENCE BOLAND on 09/24/11 1601 Cyclobenzaprine Hcl (Cyclobenzaprine Hcl) 10 Mg Tablet, 1 EACH PO Q8HR PRN, (Reported) Entered as Reported by: FLORENCE BOLAND on 09/24/11 1601 Fluticasone Propionate (Flonase 0.05% Nasal [place]) 16 Gm [place], 2 SPRAYS NSEACH DAILY, (Reported) Entered as Reported by: FLORENCE BOLAND on 09/24/11 1601 Hydrocodone Bit/Acetaminophen (Vicodin 5-500 Tablet) 1 Each Tablet, 1-2 EACH PO Q4HR PRN Prescribed by: ALMAZ SOSA on 09/24/11 1833 Hydrocodone/Acetaminophen (Hydrocodone-Acetamin 5-325 mg) 1 Each Tablet, 1-2 TAB PO Q4H PRN for COUGH Prescribed by: AMINAH ARAGON on 12/08/20 1516 Hydrocodone/Acetaminophen (Hydrocodone-Acetamin 5-325 mg) 5 Mg-325 Mg Tablet, 1 TAB PO Q6H PRN for PAIN-MODERATE (5-7) Prescribed by: Sia Drake on 07/03/22 1859 Loratadine (Claritin) 10 Mg Tab, 10 MG PO DAILY, (Reported) Entered as Reported by: FLORENCE BOLAND on 09/24/11 1601 Methylprednisolone (Medrol Dose Pack) 4 Mg/Dose-Pack Tab.ds.pk, 1 PACKET PO UD Prescribed by: AMLAZ SOSA on 09/24/11 1832 Metoprolol Succinate (Toprol Xl 50 Mg) 50 Mg Tab.sr.24h, 1 EACH PO DAILY, (R eported) Entered as Reported by: FLORENCE BOLAND on 09/24/11 1601 Oxycodone Hcl/Acetaminophen (Oxycodone-Acetaminophen 5-325) 1 Each Tablet, 1 EACH PO, (Reported) Entered as Reported by: FLORENCE BOLAND on 09/24/11 1601 Trazodone Hcl (Trazodone Hcl) 150 Mg Tablet, 150 MG PO HS PRN, (Reported) Entered as Reported by: FLORENCE BOLAND on 09/24/11 1601 Review of Systems Review of Systems Constitutional: see HPI Past Gbnigao-Xgbtml-Zymzvk Hx Patient Social History Tobacco Use?: No Use of E-Cig and/or Vaping dev: No Substance use?: No Alcohol Use?: Yes Alcohol Frequency: Once in a while Pt feels they are or have been: No Physical Exam Vital Signs Vital Signs - First Documented 07/03/22 16:21 Temp 37.0 Pulse 102 Resp 20 B/P (MAP) 132/85 (101) Pulse Ox 97 O2 Delivery Room Air Capillary Refill : Less Than 3 Seconds Height, Weight, BMI Height: '" Weight: lbs. oz. kg; 36.00 BMI Method:Stated General Appearance: WD/WN, mild distress Neck: supple, normal inspection Cardiovascular: regular rate, rhythm, no edema, no gallop, no JVD, no murmur Respiratory: lungs clear, normal breath sounds, no respiratory distress, no accessory muscle use Gastrointestinal: normal bowel sounds, non tender, soft, no organomegaly, no pulsatile mass Back: normal inspection, no CVA tenderness Extremities: normal range of motion, normal inspection, no pedal edema Neurologic/Psychiatric: alert, normal mood/affect Skin: normal color, warm/dry Progress/Results/Core Measures Suspected Sepsis SIRS Temperature: Pulse: 102 Respiratory Rate: 20 Laboratory Tests 07/03/22 16:45: White Blood Count 13.4H Blood Pressure 132 /85 Mean: 101 Laboratory Tests 07/03/22 16:45: Creatinine 0.87, Platelet Count 259, Total Bilirubin 0.6 Results/Orders Lab Results Laboratory Tests Test 07/03/22 16:33 07/03/22 16:45 Range/Units Urine Color YELLOW Urine Clarity CLEAR Urine pH 6.0 5-9 Urine Specific [place] 1.010 L 1.016-1.022 Urine Protein 2+ H NEGATIVE Urine Glucose (UA) TRACE H NEGATIVE Urine Ketones NEGATIVE NEGATIVE Urine Nitrite POSITIVE H NEGATIVE Urine Bilirubin NEGATIVE NEGATIVE Urine Urobilinogen 0.2 < = 1.0 MG/DL Urine Leukocyte Esterase 3+ H NEGATIVE Urine RBC (Auto) 3+ H NEGATIVE Urine RBC 25-50 H /HPF Urine WBC 25-50 H /HPF Urine Squamous Epithelial Cells NONE /HPF Urine Crystals NONE /LPF Urine Bacteria FEW H /HPF Urine Casts NONE /LPF Urine Mucus NEGATIVE /LPF Urine Culture Indicated YES White Blood Count 13.4 H 4.3-11.0 10^3/uL Red Blood Count 5.00 3.80-5.11 10^6/uL Hemoglobin 15.1 11.5-16.0 g/dL Hematocrit 43 35-52 % Mean Corpuscular Volume 85 80-99 fL Mean Corpuscular Hemoglobin 30 25-34 pg Mean Corpuscular Hemoglobin Concent 35 32-36 g/dL Red Cell Distribution Width 12.9 10.0-14.5 % Platelet Count 259 130-400 10^3/uL Mean Platelet Volume 10.6 9.0-12.2 fL Immature Granulocyte % (Auto) 0 % Neutrophils (%) (Auto) 71 42-75 % Lymphocytes (%) (Auto) 20 12-44 % Monocytes (%) (Auto) 7 0-12 % Eosinophils (%) (Auto) 1 0-10 % Basophils (%) (Auto) 0 0-10 % Neutrophils # (Auto) 9.5 H 1.8-7.8 10^3/uL Lymphocytes # (Auto) 2.7 1.0-4.0 10^3/uL Monocytes # (Auto) 0.9 0.0-1.0 10^3/uL Eosinophils # (Auto) 0.2 0.0-0.3 10^3/uL Basophils # (Auto) 0.1 0.0-0.1 10^3/uL Immature Granulocyte # (Auto) 0.0 0.0-0.1 10^3/uL Sodium Level 137 135-145 MMOL/L Potassium Level 3.9 3.6-5.0 MMOL/L Chloride Level 102 98-107 MMOL/L Carbon Dioxide Level 23 21-32 MMOL/L Anion Gap 12 5-14 MMOL/L Blood Urea Nitrogen 13 7-18 MG/DL Creatinine 0.87 0.60-1.30 MG/DL Estimat Glomerular Filtration Rate 81 BUN/Creatinine Ratio 15 Glucose Level 272 H 70-105 MG/DL Calcium Level 9.6 8.5-10.1 MG/DL Corrected Calcium 9.4 8.5-10.1 MG/DL Total Bilirubin 0.6 0.1-1.0 MG/DL Aspartate Amino Transf (AST/SGOT) 40 H 5-34 U/L Alanine Aminotransferase (ALT/SGPT) 67 H 0-55 U/L Alkaline Phosphatase 84 40-136 U/L Total Protein 7.3 6.4-8.2 GM/DL Albumin 4.2 3.2-4.5 GM/DL Micro Results Microbiology 07/03/22 Urine Culture - Final, Complete Escherichia coli My Orders Orders - SIA DRAKE APRN Ua Culture If Indicated (07/03/22 16:40) Ketorolac Injection (Toradol Injection) (07/03/22 17:02) Ondansetron Injection (Zofran Injectio (07/03/22 17:15) Ns Iv 1000 Ml (Sodium Chloride 0.9%) (07/03/22 17:02) Cbc With Automated Diff (07/03/22 17:02) Comprehensive Metabolic Panel (07/03/22 17:02) Urine Culture (07/03/22 16:33) Ct Abdomen/Pelvis Wo (07/03/22 17:17) Ceftriaxone (Rocephin) (07/03/22 17:45) Fentanyl Inj (Sublimaze Injection) (07/03/22 18:45) Rx-Hydrocodone/Apap 5-325 Mg (Rx-Vicodin (07/03/22 19:15) Medications Given in ED Vital Signs/I&O Capillary Refill : Less Than 3 Seconds Blood Pressure Mean: 101 Progress Note #1: Time: 17:07 Progress Note Patient seen and evaluated, resting in bed, mild distress. Based on exam and symptoms, concern for nephrolithiasis, pyelonephritis, UTI. Work-up initiated including CBC, CMP, UA with culture. IV fluids, Toradol, Zofran ordered. Progress Note #2: Time: 18:50 Progress Note Labs and CT reviewed. CBC shows elevated WBC at 13.4, and elevated neutrophil # 9.5. CMP shows elevated glucose 272, elevated AST 40, and elevated ALT 67. CT shows fatty liver. UA shows 2+ protein, trace glucose, positive nitrites, 3+ leukocytes, RBC 3+, WBC 25-50, and few bacteria. CT shows a 1 mm nonobstructing right kidney stone. No left-sided urolithiasis or hydroureteronephrosis. Normal appendix. No diverticulitis. Fatty liver with no acute biliary or pancreatic pathology. Results discussed with patient. Will discharge with antibiotic and pain medication. Patient agreeable to discharge at this time. Discharge instructions and return precautions provided. Diagnostic Imaging Diagonstic Imaging: CT Plain Films/CT/US/NM/MRI: abdomen, pelvis Comments [facility], [place] NAME: KRYSTAL BERMEO [facility] REC#: [id number] PT STATUS: DEP ER : 1970 PHYSICIAN: SIA DRAKE APRN ADMIT DATE: 07/03/22/ER Signed Date of Exam:07/03/22 CT ABDOMEN/PELVIS WO PROCEDURE: CT abdomen and pelvis without contrast. TECHNIQUE: Multiple contiguous axial images were obtained through the abdomen and pelvis without the use of intravenous contrast. Auto Exposure Controls were utilized during the CT exam to meet ALARA standards for radiation dose reduction. INDICATION: Hematuria with left-sided flank pain. COMPARISON: No priors for comparison. FINDINGS: Best seen in the coronal reconstructions is a tiny punctate nonobstructing 1 mm stone within a right lower pole calyx. There is no hydroureteronephrosis. No radiodense ureteral or bladder stone. The bladder wall non-thickened. There is no perivesical edema. No periureteric or perinephric stranding There is fatty infiltration of the nonfocal liver. No bile duct dilatation. No radiodense gallstone. The pancreas and its duct unremarkable. Spleen and adrenals nonacute. The aorta is nonaneurysmal. There is no ileus or bowel obstruction. There is an air-containing nondilated and normal appendix. Uterus atrophic or absent. No adnexal lesion. No abnormal fecal loading. No ascites, abscess, hematoma or acute fluid collection. IMPRESSION: 1. Tiny punctate 1 mm nonobstructing right kidney stone. No left-sided urolithiasis apparent and there is no hydroureteronephrosis. 2. Normal appendix. No diverticulitis. No acute adnexal abnormality. 3. Fatty liver with no acute biliary or pancreatic pathology. Dictated by: Dictated on workstation # [id number] Dict: 07/03/22 1804 Trans: 07/03/221921 [facility] [id number] Interpreted by: ROHAN MOE Electronically signed by: ROHAN MOE 07/03/221921 Departure Impression Primary Impression: Pyelonephritis Disposition: HOME, SELF-CARE Condition: Stable Departure-Patient Inst. Decision time for Depature: 18:51 Referrals: GEOVANI HENSON APRN (PCP/Family) Primary Care Physician Patient Instructions: Kidney Infection (DC) Add. Discharge Instructions: Complete full course of antibiotic even if you begin to feel better. Take pain medication as needed for pain. You may also take ibuprofen as needed for pain. Return for uncontrolled pain, fevers uncontrolled with Tylenol and ibuprofen, recurrent vomiting, inability to urinate, or any other new, concerning, or worsening symptoms. All discharge instructions reviewed with patient and/or family. Voiced understanding. Scripts Hydrocodone/Acetaminophen (Hydrocodone-Acetamin 5-325 mg) 5 Mg-325 Mg Tablet 1 TAB PO Q6H PRN for PAIN-MODERATE (5-7), #10 TAB 0 Refills Prov: SIA DRAKE APRN 07/03/22 Cefpodoxime Proxetil (Cefpodoxime Proxetil) 200 Mg Tablet 200 MG PO BID for 14 Days, #28 TAB 0 Refills Prov: SIA DRAKE APRN 07/03/22 SIA DRAKE APRN Jul 03, 2022 17:07
[2022-07-03 17:11] LABS: BASOPHILS # (AUTO) 0.1 10^3/uL (0.0-0.1); BASOPHILS % (AUTO) 0 % (0-10); EOSINOPHILS # (AUTO) 0.2 10^3/uL (0.0-0.3); EOSINOPHILS % (AUTO) 1 % (0-10); HEMATOCRIT 43 % (35-52); HEMOGLOBIN 15.1 g/dL (11.5-16.0); LYMPHOCYTES # (AUTO) 2.7 10^3/uL (1.0-4.0); LYMPHOCYTES % (AUTO) 20 % (12-44); MEAN CORPUSCULAR HEMOGLOBIN 30 pg (25-34); MEAN CORPUSCULAR HGB CONC 35 g/dL (32-36); MEAN CORPUSCULAR VOLUME 85 fL (80-99); MEAN PLATELET VOLUME 10.6 fL (9.0-12.2); MONOCYTES # (AUTO) 0.9 10^3/uL (0.0-1.0); MONOCYTES % (AUTO) 7 % (0-12); NEUTROPHILS # (AUTO) 9.5 10^3/uL (1.8-7.8); NEUTROPHILS % (AUTO) 71 % (42-75); PLATELET COUNT 259 10^3/uL (130-400); WHITE BLOOD COUNT 13.4 10^3/uL (4.3-11.0)
[2022-07-03 17:14] LABS: BACTERIA,URINE FEW /HPF; RBC,URINE 25-50 /HPF; WBC,URINE 25-50 /HPF
[2022-07-03] MEDS ORDERED: ONDANSETRON 4 MG/2 ML (SDV) Z0FRAN IVP ONE (17:15)
[2022-07-03 17:18] LABS: ALBUMIN 4.2 GM/DL (3.2-4.5); POTASSIUM 3.9 MMOL/L (3.6-5.0)
[2022-07-03 17:19] LABS: CALCIUM 9.6 MG/DL (8.5-10.1)
[2022-07-03 17:20] LABS: TOTAL PROTEIN 7.3 GM/DL (6.4-8.2)
[2022-07-03 17:22] LABS: BILIRUBIN,TOTAL 0.6 MG/DL (0.1-1.0)
[2022-07-03 17:24] LABS: CREATININE SERUM 0.87 MG/DL (0.60-1.30)
[2022-07-03] MEDS ORDERED: cefTRIAXone 2,000 MG in NS (IVPB) 50 ML IV ONE (17:45)
--- NOTE | 2022-07-03 18:24 | Diagnostic Imaging Report ---
PROCEDURE: CT abdomen and pelvis without contrast. TECHNIQUE: Multiple contiguous axial images were obtained through the abdomen and pelvis without the use of intravenous contrast. Auto Exposure Controls were utilized during the CT exam to meet ALARA standards for radiation dose reduction. INDICATION: Hematuria with left-sided flank pain. COMPARISON: No priors for comparison. FINDINGS: Best seen in the coronal reconstructions is a tiny punctate nonobstructing 1 mm stone within a right lower pole calyx. There is no hydroureteronephrosis. No radiodense ureteral or bladder stone. The bladder wall non-thickened. There is no perivesical edema. No periureteric or perinephric stranding There is fatty infiltration of the nonfocal liver. No bile duct dilatation. No radiodense gallstone. The pancreas and its duct unremarkable. Spleen and adrenals nonacute. The aorta is nonaneurysmal. There is no ileus or bowel obstruction. There is an air-containing nondilated and normal appendix. Uterus atrophic or absent. No adnexal lesion. No abnormal fecal loading. No ascites, abscess, hematoma or acute fluid collection. IMPRESSION: 1. Tiny punctate 1 mm nonobstructing right kidney stone. No left-sided urolithiasis apparent and there is no hydroureteronephrosis. 2. Normal appendix. No diverticulitis. No acute adnexal abnormality. 3. Fatty liver with no acute biliary or pancreatic pathology. Dictated by: Dictated on workstation # [id number]
[2022-07-03] MEDS ORDERED: fentaNYL INJ 100 MCG/2 ML AMP IVP ONE (18:45)
[2022-07-03] MEDS ORDERED: CEFP200T2 PO ×2 (18:53→18:59)
[2022-07-03] MEDS ORDERED: ACHD5005 PO ×2 (18:55→18:59)
[2022-07-03 19:16] VITALS: BP 109/75
== END 2022-07-03 19:20 | disposition home or self-care (01) ==
LOC: EDUNIT# 16:09 → ER 16:09
DX: N12 Tubulo-interstitial nephritis, not specified as acute or chronic (principal); Z87.442 Personal history of urinary calculi; Z88.1 Allergy status to other antibiotic agents
CPT/HCPCS: 36415; 74176; 80053; 81000; 85025; 87077; 87088; 87186